=== PATIENT | female | born 1955 | race Caucasian/White ===

== ENCOUNTER 2020-10-26 18:04 | Inpatient (IN) ==
[2020-10-26] MEDS ORDERED: Lidocaine/EPI 1:100k 1% 30 ML VIAL INFILT ONE (18:47)
[2020-10-26 19:29] LABS: Basophils % 0.4 %; Eosinophils # 0.3 K/mcL (0.0-0.6); Eosinophils % 2.8 %; Hematocrit 37.9 % (35.3-44.9); Hemoglobin 11.9 g/dL (11.5-15.4); Immature Granulocytes % 0.4 % (0-4); Lymphocytes # 2.1 K/mcL (0.6-4.6); Lymphocytes % 22.8 %; Mean Corpuscular HGB Conc 31.4 g/dL (31.6-35.5); Mean Corpuscular Hemoglobin 29.5 pg (28.0-33.3); Mean Platelet Volume 11.4 fL (9.4-12.4); Monocytes # 0.8 K/mcL (0.0-1.3); Monocytes % 8.2 %; Neutrophils # 6.1 K/mcL (1.6-8.9); Platelet Count 207 K/mcL (140-400); Red Blood Count 4.03 M/mcL (3.82-4.97); Red Cell Distribution Width 12.8 % (11.5-14.5); Segmented Neutrophils % 65.4 %; White Blood Count 9.3 K/mcL (4.3-11.1)
[2020-10-26 19:41] LABS: Bilirubin,Urine Negative (Negative); Blood,Urine Negative (Negative); Clarity,Urine Clear (Clear); Color,Urine Light-Yellow (Yellow); Glucose,Urine (UA) Normal (Normal); Ketones,Urine Negative (Negative); Leukocyte Esterase,Urine Negative (Negative); Nitrite,Urine Negative (Negative); Protein,Urine Negative (Neg-Trace); Specific Gravity,Urine 1.013 (1.010-1.025); Urobilinogen,Urine Normal (Normal)
[2020-10-26 21:09] LABS: Alanine Aminotransferase 14 Units/L (7-52); Albumin 3.3 g/dL (3.5-5.7); Albumin/Globulin Ratio 1.1 (1.1-2.2); Alkaline Phosphatase 90 Units/L (34-104); Aspartate Amino Transferase 17 Units/L (13-39); BUN/Creatinine Ratio 23 (6-26); Bilirubin,Total 0.3 mg/dL (0.3-1.0); Blood Urea Nitrogen 16 mg/dL (8-23); C-Reactive Protein 9 mg/L (Less than 10); Calcium 8.9 mg/dL (8.6-10.3); Carbon Dioxide 25 mEq/L (23-29); Chloride 105 mEq/L (98-107); Globulin 3.1 g/dL (2.4-3.5); Glucose 92 mg/dL (70-105); Osmolality,Calculated 287 (280-300); Potassium 3.8 mEq/L (3.5-5.1); Sodium 138 mEq/L (136-145); Total Protein 6.4 g/dL (6.4-8.9); Uric Acid 5.8 mg/dL (2.3-7.6); eGFR For African Americans > 60 (> 60); eGFR For Non-African Americans > 60 (> 60)
[2020-10-26] MEDS ORDERED: Isovue-370 500 ML BOTTLE IVP ONE (21:12)
[2020-10-26] MEDS ORDERED: cefTRIAXone 1,000 MG in Water for inj. (sterile) 10 ML IVP ONE (22:35)
[2020-10-26 22:47] LABS: Source,Synovial Fluid ELBOW LEFT
[2020-10-26] MEDS ORDERED: Vancomycin 1,750 MG in 0.9 % Sodium Chloride 250 ML IVPB SCH (23:45)
[2020-10-26] MEDS ORDERED: Ondansetron ODT 4 MG TAB.RAPDIS SL PRN (23:48)
[2020-10-26] MEDS ORDERED: Naloxone 0.4 MG/ML INJ IVP PRN (23:48)
[2020-10-26 23:54] LABS: Appearance,Synovial Fluid Cloudy (Clear-Hazy); Color,Synovial Fluid Straw (Straw)
[2020-10-27] MEDS: 0.9 % Sodium Chloride 1,000 ML IVC SCH ×2 (02:05→14:18)
[2020-10-27] MEDS: Clindamycin 600 MG/50 ML 600 MG/50 ML IV.SOLN IVPB SCH ×4 (02:05→23:18)
[2020-10-27] MEDS: Melatonin 3 MG TABLET PO PRN ×2 (04:40→23:19)
[2020-10-27 05:37] LABS: INR 1.2; Prothrombin Time 13.4 Seconds (9.4-12.1)
[2020-10-27 05:39] LABS: Basophils % 0.6 %; Eosinophils # 0.2 K/mcL (0.0-0.6); Eosinophils % 2.7 %; Hematocrit 40.4 % (35.3-44.9); Hemoglobin 12.8 g/dL (11.5-15.4); Immature Granulocytes % 0.3 % (0-4); Lymphocytes # 2.2 K/mcL (0.6-4.6); Mean Corpuscular HGB Conc 31.7 g/dL (31.6-35.5); Mean Corpuscular Hemoglobin 29.7 pg (28.0-33.3); Mean Corpuscular Volume 93.7 fL (83.0-100.0); Mean Platelet Volume 11.3 fL (9.4-12.4); Monocytes # 0.5 K/mcL (0.0-1.3); Neutrophils # 3.8 K/mcL (1.6-8.9); Platelet Count 204 K/mcL (140-400); Red Blood Count 4.31 M/mcL (3.82-4.97); Red Cell Distribution Width 12.8 % (11.5-14.5); Segmented Neutrophils % 56.4 %; White Blood Count 6.8 K/mcL (4.3-11.1)
[2020-10-27] MEDS: *HR* HYDROcodone/Acet 5/325 mg TABLET PO PRN (05:50)
[2020-10-27 06:03] LABS: BUN/Creatinine Ratio 19 (6-26); Blood Urea Nitrogen 15 mg/dL (8-23); Calcium 9.1 mg/dL (8.6-10.3); Carbon Dioxide 25 mEq/L (23-29); Chloride 106 mEq/L (98-107); Glucose 103 mg/dL (70-105); Magnesium 1.8 mg/dL (1.6-2.6); Osmolality,Calculated 291 (280-300); Potassium 3.6 mEq/L (3.5-5.1); Sodium 140 mEq/L (136-145); eGFR For African Americans > 60 (> 60); eGFR For Non-African Americans > 60 (> 60)
[2020-10-27] MEDS: amLODIPine 5 MG TABLET PO SCH (08:07)
[2020-10-27] MEDS: PARoxetine 30 MG TABLET PO SCH (08:07)
[2020-10-27] MEDS: Aspirin Enteric Coated 81 MG Tablet PO SCH (08:07)
[2020-10-27] MEDS: Metoprolol XL (24 HR) Succ 50 MG TAB.ER.24H PO SCH (08:07)
[2020-10-27] MEDS ORDERED: Vancomycin 1,250 MG/262.5 ML IV.SOLN IVPB SCH (12:00)
[2020-10-27] MEDS: Tiotropium 10 INH DOSE IH SCH (15:13)
[2020-10-27] MEDS: Gabapentin 400 MG CAPSULE PO SCH ×2 (16:34→21:26)
[2020-10-28 02:54] LABS: Hematocrit 38.2 % (35.3-44.9); Hemoglobin 11.8 g/dL (11.5-15.4); Mean Corpuscular HGB Conc 30.9 g/dL (31.6-35.5); Mean Corpuscular Hemoglobin 29.8 pg (28.0-33.3); Mean Corpuscular Volume 96.5 fL (83.0-100.0); Mean Platelet Volume 11.4 fL (9.4-12.4); Platelet Count 190 K/mcL (140-400); Red Blood Count 3.96 M/mcL (3.82-4.97); White Blood Count 6.4 K/mcL (4.3-11.1)
[2020-10-28 03:13] LABS: BUN/Creatinine Ratio 20 (6-26); Blood Urea Nitrogen 15 mg/dL (8-23); Calcium 8.6 mg/dL (8.6-10.3); Carbon Dioxide 25 mEq/L (23-29); Chloride 109 mEq/L (98-107); Glucose 100 mg/dL (70-105); Osmolality,Calculated 291 (280-300); Potassium 3.8 mEq/L (3.5-5.1); Sodium 140 mEq/L (136-145); eGFR For African Americans > 60 (> 60); eGFR For Non-African Americans > 60 (> 60)
[2020-10-28] MEDS ORDERED: Povidone-Iodine 45 ML, Sodium Chloride IRRigation 1,000 ML IR ONE ×2 (06:00→08:00)
[2020-10-28] MEDS ORDERED: TOTAL JOINT MIXTURE (100ML) INTRAART ONE ×2 (06:00→08:00)
[2020-10-28] MEDS ORDERED: Ondansetron 4 MG/2 ML VIAL IVP PRN (07:01)
[2020-10-28] MEDS ORDERED: *HR* Meperidine 25 MG/ML SYRINGE IVP PRN (07:01)
[2020-10-28] MEDS ORDERED: Albuterol 2.5 MG/3 ML NEBULIZER IH PRN (07:01)
[2020-10-28] MEDS ORDERED: *HR* Midazolam HCl 2 MG/2 ML VIAL IVP PRN (07:01)
[2020-10-28] MEDS ORDERED: *HR* FentaNYL (PF) 100 MCG/2 ML VIAL ONE (07:04)
[2020-10-28] MEDS ORDERED: *HR* Midazolam HCl 2 MG/2 ML VIAL ONE (07:04)
[2020-10-28] MEDS ORDERED: *HR* Propofol 200 MG/20 ML VIAL IVP ONE (07:04)
[2020-10-28] MEDS ORDERED: Lidocaine -MPF 2% 2 ML VIAL ONE (07:05)
[2020-10-28] MEDS ORDERED: Ondansetron 4 MG/2 ML VIAL ONE (07:05)
[2020-10-28] MEDS: Metoprolol XL (24 HR) Succ 50 MG TAB.ER.24H PO SCH (07:15)
[2020-10-28] MEDS ORDERED: Lidocaine HCL 4 ML Topical Solution (Laryng-O-Jet Kit Sterile Pak) TP ONE (07:47)
[2020-10-28] MEDS ORDERED: *HR* Succinylcholine 200 MG/10 ML VIAL IVP ONE (07:47)
[2020-10-28] MEDS ORDERED: Clindamycin 600 MG/50 ML 600 MG/50 ML IV.SOLN IVPB ONE (07:57)
[2020-10-28] MEDS: Clindamycin 600 MG/50 ML 600 MG/50 ML IV.SOLN IVPB SCH ×3 (08:30→23:32)
[2020-10-28] MEDS: *HR* FentaNYL (PF) 100 MCG/2 ML VIAL IVP PRN ×2 (09:57→10:02)
[2020-10-28] MEDS: Tiotropium 10 INH DOSE IH SCH (11:12)
[2020-10-28] MEDS: PARoxetine 30 MG TABLET PO SCH (11:19)
[2020-10-28] MEDS: Gabapentin 400 MG CAPSULE PO SCH ×3 (11:19→20:59)
[2020-10-28] MEDS: Aspirin Enteric Coated 81 MG Tablet PO SCH (11:19)
[2020-10-28] MEDS: amLODIPine 5 MG TABLET PO SCH (11:19)
[2020-10-28] MEDS: *HR* HYDROcodone/Acet 5/325 mg TABLET PO PRN ×2 (11:19→18:09)
[2020-10-28] MEDS ORDERED: Vancomycin 1,500 MG/265 ML IV.SOLN IVPB SCH (12:00)
[2020-10-28] MEDS: *HR* Heparin 5,000 UNIT/ML VIAL SQ SCH (18:09)
[2020-10-29] MEDS: Melatonin 3 MG TABLET PO PRN (00:30)
[2020-10-29] MEDS: *HR* Heparin 5,000 UNIT/ML VIAL SQ SCH (05:11)
[2020-10-29 07:55] VITALS: BP 111/72
[2020-10-29] MEDS: Tiotropium 10 INH DOSE IH SCH (08:01)
[2020-10-29] MEDS: *HR* HYDROcodone/Acet 5/325 mg TABLET PO PRN (09:24)
[2020-10-29] MEDS: amLODIPine 5 MG TABLET PO SCH (09:24)
[2020-10-29] MEDS: Metoprolol XL (24 HR) Succ 50 MG TAB.ER.24H PO SCH (09:24)
[2020-10-29] MEDS: Clindamycin 600 MG/50 ML 600 MG/50 ML IV.SOLN IVPB SCH (09:24)
[2020-10-29] MEDS: Aspirin Enteric Coated 81 MG Tablet PO SCH (09:24)
[2020-10-29] MEDS: PARoxetine 30 MG TABLET PO SCH (09:25)
[2020-10-29] MEDS: Gabapentin 400 MG CAPSULE PO SCH (09:25)
[2020-10-29 11:47] LABS: Basophils % 0.5 %; Eosinophils # 0.1 K/mcL (0.0-0.6); Eosinophils % 1.5 %; Hematocrit 37.9 % (35.3-44.9); Hemoglobin 11.6 g/dL (11.5-15.4); Immature Granulocytes % 0.2 % (0-4); Lymphocytes # 2.5 K/mcL (0.6-4.6); Lymphocytes % 28.2 %; Mean Corpuscular HGB Conc 30.6 g/dL (31.6-35.5); Mean Corpuscular Hemoglobin 29.3 pg (28.0-33.3); Mean Corpuscular Volume 95.7 fL (83.0-100.0); Mean Platelet Volume 11.1 fL (9.4-12.4); Monocytes # 0.7 K/mcL (0.0-1.3); Monocytes % 7.5 %; Neutrophils # 5.5 K/mcL (1.6-8.9); Platelet Count 190 K/mcL (140-400); Red Blood Count 3.96 M/mcL (3.82-4.97); Segmented Neutrophils % 62.1 %; White Blood Count 8.8 K/mcL (4.3-11.1)
[2020-10-29 12:08] LABS: BUN/Creatinine Ratio 19 (6-26); Blood Urea Nitrogen 19 mg/dL (8-23); Calcium 8.9 mg/dL (8.6-10.3); Carbon Dioxide 27 mEq/L (23-29); Chloride 107 mEq/L (98-107); Glucose 109 mg/dL (70-105); Osmolality,Calculated 291 (280-300); Sodium 139 mEq/L (136-145); Vancomycin,Trough 8 mcg/mL (5-10); eGFR For African Americans > 60 (> 60); eGFR For Non-African Americans 56 (> 60)
== END 2020-10-29 17:24 | disposition home or self-care (01) | DRG 501 ==
LOC: 3ANU 18:04 → EMEROOARM 18:04 → 3ANU 23:21
PROVIDERS: ADMIT Student in an Organized Health Care Education/Training Program; ATTEND Student in an Organized Health Care Education/Training Program

== ENCOUNTER 2021-04-26 09:02 | Inpatient (IN) ==
[2021-04-26] MEDS ORDERED: Naloxone 0.4 MG/ML INJ IVP PRN (10:32)
[2021-04-26] MEDS ORDERED: *HR* OxyCODONE Immed Rel 5 MG TABLET PO PRN (10:36)
[2021-04-26] MEDS ORDERED: *HR* Metoprolol 5 MG/5 ML VIAL IVP PRN (10:36)
[2021-04-26 11:30] LABS: Basophils # 0.1 K/mcL (0.0-0.2); Basophils % 0.7 %; Eosinophils # 0.4 K/mcL (0.0-0.6); Hematocrit 39.1 % (35.3-44.9); Hemoglobin 12.3 g/dL (11.5-15.4); Immature Granulocytes % 0.8 % (0-4); Lymphocytes % 27.4 %; Mean Corpuscular HGB Conc 31.5 g/dL (31.6-35.5); Mean Corpuscular Hemoglobin 28.9 pg (28.0-33.3); Mean Corpuscular Volume 91.8 fL (83.0-100.0); Mean Platelet Volume 10.5 fL (9.4-12.4); Monocytes # 0.6 K/mcL (0.0-1.3); Monocytes % 8.5 %; Neutrophils # 4.2 K/mcL (1.6-8.9); Platelet Count 221 K/mcL (140-400); Red Blood Count 4.26 M/mcL (3.82-4.97); Red Cell Distribution Width 13.3 % (11.5-14.5); Segmented Neutrophils % 57.6 %; White Blood Count 7.4 K/mcL (4.3-11.1)
[2021-04-26 11:48] LABS: BUN/Creatinine Ratio 18 (6-26); Blood Urea Nitrogen 17 mg/dL (8-23); C-Reactive Protein 25 mg/L (Less than 10); Calcium 9.1 mg/dL (8.6-10.3); Carbon Dioxide 29 mEq/L (23-29); Chloride 103 mEq/L (98-107); Glucose 136 mg/dL (70-105); Osmolality,Calculated 294 (280-300); Potassium 3.6 mEq/L (3.5-5.1); Sodium 140 mEq/L (136-145); eGFR For African Americans > 60 (> 60); eGFR For Non-African Americans > 60 (> 60)
[2021-04-26 13:13] LABS: Procalcitonin 0.03 ng/mL (0.00-0.15)
[2021-04-26] MEDS ORDERED: Loratadine 10 MG TABLET PO PRN (16:48)
[2021-04-26] MEDS ORDERED: Melatonin 3 MG TABLET PO SCH (21:00)
[2021-04-27 04:53] LABS: Basophils # 0.1 K/mcL (0.0-0.2); Basophils % 0.7 %; Eosinophils # 0.3 K/mcL (0.0-0.6); Eosinophils % 4.4 %; Hematocrit 39.9 % (35.3-44.9); Immature Granulocytes % 0.8 % (0-4); Lymphocytes # 1.9 K/mcL (0.6-4.6); Lymphocytes % 24.9 %; Mean Corpuscular HGB Conc 32.6 g/dL (31.6-35.5); Mean Corpuscular Hemoglobin 29.4 pg (28.0-33.3); Mean Corpuscular Volume 90.3 fL (83.0-100.0); Mean Platelet Volume 10.3 fL (9.4-12.4); Monocytes # 0.7 K/mcL (0.0-1.3); Monocytes % 9.4 %; Neutrophils # 4.5 K/mcL (1.6-8.9); Platelet Count 209 K/mcL (140-400); Red Blood Count 4.42 M/mcL (3.82-4.97); Red Cell Distribution Width 13.3 % (11.5-14.5); Segmented Neutrophils % 59.8 %; White Blood Count 7.5 K/mcL (4.3-11.1)
[2021-04-27 05:12] LABS: BUN/Creatinine Ratio 22 (6-26); Blood Urea Nitrogen 17 mg/dL (8-23); Calcium 8.8 mg/dL (8.6-10.3); Carbon Dioxide 26 mEq/L (23-29); Chloride 108 mEq/L (98-107); Glucose 94 mg/dL (70-105); Osmolality,Calculated 295 (280-300); Potassium 3.8 mEq/L (3.5-5.1); Sodium 142 mEq/L (136-145); eGFR For African Americans > 60 (> 60); eGFR For Non-African Americans > 60 (> 60)
[2021-04-27] MEDS ORDERED: *HR* Heparin 5,000 UNIT/ML VIAL SQ SCH (06:00)
[2021-04-27] MEDS ORDERED: LORATADINE 10 MG PO PRN (13:06)
[2021-04-27 13:16] LABS: C-Reactive Protein 17 mg/L (Less than 10)
[2021-04-27] MEDS ORDERED: Lidocaine/EPI 1:200k 1% PF 10 ML VIAL ONE (14:25)
[2021-04-27] MEDS ORDERED: *HR* FentaNYL (PF) 100 MCG/2 ML VIAL ONE ×3 (14:33→16:13)
[2021-04-27] MEDS ORDERED: *HR* Propofol 200 MG/20 ML VIAL IVP ONE (14:33)
[2021-04-27] MEDS ORDERED: Ondansetron 4 MG/2 ML VIAL IVP PRN (14:36)
[2021-04-27] MEDS ORDERED: *HR* Succinylcholine 200 MG/10 ML VIAL IVP ONE (14:56)
[2021-04-27] MEDS ORDERED: Lidocaine HCL 4 ML Topical Solution (Laryng-O-Jet Kit Sterile Pak) TP ONE (14:56)
[2021-04-27] MEDS ORDERED: *HR* Rocuronium Bromide 50 MG/5 ML VIAL ONE (14:56)
[2021-04-27] MEDS ORDERED: Lidocaine -MPF 2% 2 ML VIAL ONE (14:56)
[2021-04-27] MEDS ORDERED: Gabapentin 400 MG CAPSULE PO SCH (15:00)
[2021-04-27] MEDS ORDERED: Vancomycin (wt based) 1,000 MG VIAL IVPB PRN (16:20)
[2021-04-27] MEDS ORDERED: Vancomycin 1,750 MG/517.5 ML IV.SOLN IVPB ONE (16:36)
[2021-04-27] MEDS: Morphine Sulfate 2 MG/ML SYRINGE IVP PRN ×3 (16:37→16:48)
[2021-04-27] MEDS ORDERED: Ringers Solution, Lactated 1,000 ML ONE (16:55)
[2021-04-27] MEDS: Piperacillin/Tazobactam 3.375 GM in 0.9 % Sodium Chloride Mini Bag 100 ML IVPB SCH ×2 (17:54→23:01)
[2021-04-27] MEDS ORDERED: *HR* Metoprolol 5 MG/5 ML VIAL IVP PRN (18:18)
[2021-04-27] MEDS ORDERED: Loratadine 10 MG TABLET PO PRN (18:18)
[2021-04-27] MEDS ORDERED: Naloxone 0.4 MG/ML INJ IVP PRN (18:18)
[2021-04-27] MEDS: *HR* OxyCODONE Immed Rel 5 MG TABLET PO PRN (19:38)
[2021-04-27] MEDS: Melatonin 3 MG TABLET PO SCH (20:44)
[2021-04-27] MEDS: Gabapentin 400 MG CAPSULE PO SCH (20:44)
[2021-04-27] MEDS: Aspirin Enteric Coated 81 MG Tablet PO SCH (20:44)
[2021-04-27] MEDS: modafiniL 100 MG TABLET PO SCH (20:46)
[2021-04-27] MEDS ORDERED: Aspirin Enteric Coated 81 MG Tablet PO SCH (21:00)
[2021-04-27] MEDS ORDERED: modafiniL 100 MG TABLET PO SCH (21:00)
[2021-04-28] MEDS: *HR* OxyCODONE Immed Rel 5 MG TABLET PO PRN ×2 (03:21→13:47)
[2021-04-28] MEDS: Vancomycin 1,250 MG/262.5 ML IV.SOLN IVPB SCH ×2 (06:22→17:45)
[2021-04-28] MEDS: Cholecalciferol (D-3) 1,000 UNIT (25MCG) TABLET PO SCH (07:54)
[2021-04-28] MEDS: hydroCHLOROthiazide 25 MG TABLET PO SCH (07:54)
[2021-04-28] MEDS: PARoxetine 30 MG TABLET PO SCH (07:55)
[2021-04-28] MEDS: Metoprolol XL (24 HR) Succ 50 MG TAB.ER.24H PO SCH (07:55)
[2021-04-28] MEDS: Cyanocobalamin (B-12) 1,000 MCG TABLET PO SCH (07:55)
[2021-04-28] MEDS: modafiniL 100 MG TABLET PO SCH ×2 (07:55→21:51)
[2021-04-28] MEDS: Piperacillin/Tazobactam 3.375 GM in 0.9 % Sodium Chloride Mini Bag 100 ML IVPB SCH (07:56)
[2021-04-28] MEDS: Gabapentin 400 MG CAPSULE PO SCH ×3 (07:56→21:49)
[2021-04-28] MEDS: amLODIPine 5 MG TABLET PO SCH (08:00)
[2021-04-28] MEDS: Budesonide/Formoterol 160/4.5 1 PUFF INH IH SCH ×2 (08:01→21:01)
[2021-04-28] MEDS: Tiotropium 10 INH DOSE IH SCH (08:06)
[2021-04-28] MEDS ORDERED: amLODIPine 5 MG TABLET PO SCH (09:00)
[2021-04-28] MEDS ORDERED: Metoprolol XL (24 HR) Succ 50 MG TAB.ER.24H PO SCH (09:00)
[2021-04-28] MEDS ORDERED: hydroCHLOROthiazide 25 MG TABLET PO SCH (09:00)
[2021-04-28] MEDS ORDERED: PARoxetine 30 MG TABLET PO SCH (09:00)
[2021-04-28] MEDS ORDERED: Cholecalciferol (D-3) 1,000 UNIT (25MCG) TABLET PO SCH (09:00)
[2021-04-28] MEDS ORDERED: Cyanocobalamin (B-12) 1,000 MCG TABLET PO SCH (09:00)
[2021-04-28 09:46] LABS: Hematocrit 36.9 % (35.3-44.9); Mean Corpuscular HGB Conc 30.1 g/dL (31.6-35.5); Mean Corpuscular Hemoglobin 28.2 pg (28.0-33.3); Mean Corpuscular Volume 93.9 fL (83.0-100.0); Mean Platelet Volume 10.7 fL (9.4-12.4); Platelet Count 207 K/mcL (140-400); Red Blood Count 3.93 M/mcL (3.82-4.97); Red Cell Distribution Width 13.3 % (11.5-14.5); White Blood Count 9.2 K/mcL (4.3-11.1)
[2021-04-28 09:47] LABS: Hemoglobin 11.1 g/dL (11.5-15.4)
[2021-04-28] MEDS ORDERED: Budesonide/Formoterol 160/4.5 1 PUFF INH IH SCH (10:00)
[2021-04-28] MEDS ORDERED: Tiotropium 10 INH DOSE IH SCH (10:00)
[2021-04-28 10:08] LABS: BUN/Creatinine Ratio 15 (6-26); Blood Urea Nitrogen 12 mg/dL (8-23); Calcium 8.3 mg/dL (8.6-10.3); Carbon Dioxide 30 mEq/L (23-29); Chloride 107 mEq/L (98-107); Glucose 116 mg/dL (70-105); Osmolality,Calculated 295 (280-300); Sodium 142 mEq/L (136-145); eGFR For African Americans > 60 (> 60); eGFR For Non-African Americans > 60 (> 60)
[2021-04-28] MEDS: Cefepime HCl 2,000 MG in Water for inj. (sterile) 20 ML IVP SCH (15:11)
[2021-04-28] MEDS: *HR* Heparin 5,000 UNIT/ML VIAL SQ SCH (17:45)
[2021-04-28] MEDS ORDERED: lisinopriL 20 MG TABLET PO SCH ×2 (21:00)
[2021-04-28] MEDS: Melatonin 3 MG TABLET PO SCH (21:49)
[2021-04-28] MEDS: Aspirin Enteric Coated 81 MG Tablet PO SCH (21:50)
[2021-04-28] MEDS: cilostazoL 100 MG TABLET PO SCH (21:51)
[2021-04-28] MEDS: Famotidine 20 MG TABLET PO SCH (22:14)
[2021-04-29] MEDS: *HR* OxyCODONE Immed Rel 5 MG TABLET PO PRN ×3 (01:03→20:43)
[2021-04-29] MEDS: Vancomycin 1,250 MG/262.5 ML IV.SOLN IVPB SCH ×2 (05:21→06:26)
[2021-04-29] MEDS: Cefepime HCl 2,000 MG in Water for inj. (sterile) 20 ML IVP SCH ×2 (05:21→17:29)
[2021-04-29] MEDS: *HR* Heparin 5,000 UNIT/ML VIAL SQ SCH ×2 (05:22→17:26)
[2021-04-29 05:58] LABS: Hematocrit 38.7 % (35.3-44.9); Hemoglobin 12.3 g/dL (11.5-15.4); Mean Corpuscular HGB Conc 31.8 g/dL (31.6-35.5); Mean Corpuscular Hemoglobin 29.4 pg (28.0-33.3); Mean Corpuscular Volume 92.4 fL (83.0-100.0); Platelet Count 191 K/mcL (140-400); Red Blood Count 4.19 M/mcL (3.82-4.97); Red Cell Distribution Width 13.5 % (11.5-14.5); White Blood Count 9.6 K/mcL (4.3-11.1)
[2021-04-29 06:15] LABS: BUN/Creatinine Ratio 23 (6-26); Blood Urea Nitrogen 18 mg/dL (8-23); Calcium 8.8 mg/dL (8.6-10.3); Carbon Dioxide 27 mEq/L (23-29); Chloride 107 mEq/L (98-107); Glucose 105 mg/dL (70-105); Osmolality,Calculated 292 (280-300); Potassium 3.5 mEq/L (3.5-5.1); Sodium 140 mEq/L (136-145); eGFR For African Americans > 60 (> 60); eGFR For Non-African Americans > 60 (> 60)
[2021-04-29] MEDS: Cholecalciferol (D-3) 1,000 UNIT (25MCG) TABLET PO SCH (07:17)
[2021-04-29] MEDS: hydroCHLOROthiazide 25 MG TABLET PO SCH (07:17)
[2021-04-29] MEDS: cilostazoL 100 MG TABLET PO SCH ×2 (07:17→20:39)
[2021-04-29] MEDS: amLODIPine 5 MG TABLET PO SCH (07:18)
[2021-04-29] MEDS: PARoxetine 30 MG TABLET PO SCH (07:18)
[2021-04-29] MEDS: Famotidine 20 MG TABLET PO SCH ×2 (07:18→20:39)
[2021-04-29] MEDS: modafiniL 100 MG TABLET PO SCH ×2 (07:18→20:41)
[2021-04-29] MEDS: Gabapentin 400 MG CAPSULE PO SCH ×3 (07:18→20:39)
[2021-04-29] MEDS: Cyanocobalamin (B-12) 1,000 MCG TABLET PO SCH (07:18)
[2021-04-29] MEDS: Metoprolol XL (24 HR) Succ 50 MG TAB.ER.24H PO SCH (07:18)
[2021-04-29] MEDS: Tiotropium 10 INH DOSE IH SCH (10:25)
[2021-04-29] MEDS: Budesonide/Formoterol 160/4.5 1 PUFF INH IH SCH ×2 (10:25→21:58)
[2021-04-29] MEDS: Melatonin 3 MG TABLET PO SCH (20:39)
[2021-04-29] MEDS: lisinopriL 20 MG TABLET PO SCH (20:39)
[2021-04-29] MEDS: Aspirin Enteric Coated 81 MG Tablet PO SCH (20:39)
[2021-04-30 03:23] LABS: Hematocrit 37.9 % (35.3-44.9); Hemoglobin 11.7 g/dL (11.5-15.4); Mean Corpuscular HGB Conc 30.9 g/dL (31.6-35.5); Mean Corpuscular Hemoglobin 28.7 pg (28.0-33.3); Mean Corpuscular Volume 92.9 fL (83.0-100.0); Mean Platelet Volume 10.5 fL (9.4-12.4); Platelet Count 209 K/mcL (140-400); Red Blood Count 4.08 M/mcL (3.82-4.97); Red Cell Distribution Width 13.4 % (11.5-14.5); White Blood Count 10.6 K/mcL (4.3-11.1)
[2021-04-30 05:05] LABS: BUN/Creatinine Ratio 18 (6-26); Blood Urea Nitrogen 17 mg/dL (8-23); Calcium 8.8 mg/dL (8.6-10.3); Carbon Dioxide 32 mEq/L (23-29); Chloride 102 mEq/L (98-107); Glucose 108 mg/dL (70-105); Osmolality,Calculated 292 (280-300); Potassium 3.7 mEq/L (3.5-5.1); Sodium 140 mEq/L (136-145); eGFR For African Americans > 60 (> 60); eGFR For Non-African Americans 57 (> 60)
[2021-04-30] MEDS: *HR* Heparin 5,000 UNIT/ML VIAL SQ SCH ×2 (05:08→17:49)
[2021-04-30] MEDS: Cefepime HCl 2,000 MG in Water for inj. (sterile) 20 ML IVP SCH (05:09)
[2021-04-30] MEDS: *HR* OxyCODONE Immed Rel 5 MG TABLET PO PRN (06:10)
[2021-04-30] MEDS: Tiotropium 10 INH DOSE IH SCH (07:22)
[2021-04-30] MEDS: Budesonide/Formoterol 160/4.5 1 PUFF INH IH SCH ×2 (07:22→21:48)
[2021-04-30] MEDS: amLODIPine 5 MG TABLET PO SCH (09:31)
[2021-04-30] MEDS: Cholecalciferol (D-3) 1,000 UNIT (25MCG) TABLET PO SCH (09:31)
[2021-04-30] MEDS: modafiniL 100 MG TABLET PO SCH ×2 (09:31→19:57)
[2021-04-30] MEDS: Famotidine 20 MG TABLET PO SCH ×2 (09:31→19:52)
[2021-04-30] MEDS: PARoxetine 30 MG TABLET PO SCH (09:31)
[2021-04-30] MEDS: cilostazoL 100 MG TABLET PO SCH ×2 (09:31→19:52)
[2021-04-30] MEDS: Cyanocobalamin (B-12) 1,000 MCG TABLET PO SCH (09:31)
[2021-04-30] MEDS: hydroCHLOROthiazide 25 MG TABLET PO SCH (09:32)
[2021-04-30] MEDS: Gabapentin 400 MG CAPSULE PO SCH ×3 (09:32→19:52)
[2021-04-30] MEDS: Metoprolol XL (24 HR) Succ 50 MG TAB.ER.24H PO SCH (09:32)
[2021-04-30] MEDS: cefTRIAXone 2,000 MG in 0.9 % Sodium Chloride Mini Bag 100 ML IVPB SCH (11:24)
[2021-04-30 11:25] LABS: C-Reactive Protein 13 mg/L (Less than 10)
[2021-04-30] MEDS: Aspirin Enteric Coated 81 MG Tablet PO SCH (19:52)
[2021-04-30] MEDS: Melatonin 3 MG TABLET PO SCH (19:53)
[2021-04-30] MEDS: lisinopriL 20 MG TABLET PO SCH (19:54)
[2021-05-01 04:44] LABS: Hematocrit 36.7 % (35.3-44.9); Hemoglobin 12.2 g/dL (11.5-15.4); Mean Corpuscular HGB Conc 33.2 g/dL (31.6-35.5); Mean Corpuscular Hemoglobin 30.1 pg (28.0-33.3); Mean Corpuscular Volume 90.6 fL (83.0-100.0); Mean Platelet Volume 10.7 fL (9.4-12.4); Platelet Count 207 K/mcL (140-400); Red Blood Count 4.05 M/mcL (3.82-4.97); Red Cell Distribution Width 13.4 % (11.5-14.5); White Blood Count 11.4 K/mcL (4.3-11.1)
[2021-05-01 05:00] LABS: BUN/Creatinine Ratio 18 (6-26); Blood Urea Nitrogen 17 mg/dL (8-23); Calcium 9.3 mg/dL (8.6-10.3); Carbon Dioxide 31 mEq/L (23-29); Chloride 101 mEq/L (98-107); Glucose 113 mg/dL (70-105); Osmolality,Calculated 290 (280-300); Potassium 3.6 mEq/L (3.5-5.1); Sodium 139 mEq/L (136-145); eGFR For African Americans > 60 (> 60); eGFR For Non-African Americans 57 (> 60)
[2021-05-01] MEDS: *HR* Heparin 5,000 UNIT/ML VIAL SQ SCH ×2 (05:22→17:38)
[2021-05-01] MEDS: Tiotropium 10 INH DOSE IH SCH (08:02)
[2021-05-01] MEDS: Budesonide/Formoterol 160/4.5 1 PUFF INH IH SCH ×2 (08:02→22:50)
[2021-05-01] MEDS: hydroCHLOROthiazide 25 MG TABLET PO SCH (09:40)
[2021-05-01] MEDS: Gabapentin 400 MG CAPSULE PO SCH ×3 (09:40→20:47)
[2021-05-01] MEDS: amLODIPine 5 MG TABLET PO SCH (09:41)
[2021-05-01] MEDS: Cholecalciferol (D-3) 1,000 UNIT (25MCG) TABLET PO SCH (09:41)
[2021-05-01] MEDS: Metoprolol XL (24 HR) Succ 50 MG TAB.ER.24H PO SCH (09:41)
[2021-05-01] MEDS: cilostazoL 100 MG TABLET PO SCH ×2 (09:41→20:47)
[2021-05-01] MEDS: modafiniL 100 MG TABLET PO SCH ×2 (09:41→20:46)
[2021-05-01] MEDS: PARoxetine 30 MG TABLET PO SCH (09:41)
[2021-05-01] MEDS: Famotidine 20 MG TABLET PO SCH ×2 (09:41→20:47)
[2021-05-01] MEDS: Cyanocobalamin (B-12) 1,000 MCG TABLET PO SCH (09:41)
[2021-05-01] MEDS: cefTRIAXone 2,000 MG in 0.9 % Sodium Chloride Mini Bag 100 ML IVPB SCH (09:42)
[2021-05-01] MEDS: *HR* OxyCODONE Immed Rel 5 MG TABLET PO PRN ×2 (10:17→17:52)
[2021-05-01] MEDS: Aspirin Enteric Coated 81 MG Tablet PO SCH (20:44)
[2021-05-01] MEDS: lisinopriL 20 MG TABLET PO SCH (20:47)
[2021-05-01] MEDS: Melatonin 3 MG TABLET PO SCH (23:02)
[2021-05-02] MEDS: *HR* Heparin 5,000 UNIT/ML VIAL SQ SCH ×2 (05:30→17:32)
[2021-05-02] MEDS: Tiotropium 10 INH DOSE IH SCH (07:53)
[2021-05-02] MEDS: Budesonide/Formoterol 160/4.5 1 PUFF INH IH SCH ×2 (07:53→20:25)
[2021-05-02] MEDS: hydroCHLOROthiazide 25 MG TABLET PO SCH (09:37)
[2021-05-02] MEDS: Famotidine 20 MG TABLET PO SCH ×2 (09:37→19:52)
[2021-05-02] MEDS: amLODIPine 5 MG TABLET PO SCH (09:37)
[2021-05-02] MEDS: Metoprolol XL (24 HR) Succ 50 MG TAB.ER.24H PO SCH (09:37)
[2021-05-02] MEDS: Cholecalciferol (D-3) 1,000 UNIT (25MCG) TABLET PO SCH (09:37)
[2021-05-02] MEDS: Gabapentin 400 MG CAPSULE PO SCH ×3 (09:38→19:52)
[2021-05-02] MEDS: cilostazoL 100 MG TABLET PO SCH ×2 (09:38→19:52)
[2021-05-02] MEDS: PARoxetine 30 MG TABLET PO SCH (09:41)
[2021-05-02] MEDS: Cyanocobalamin (B-12) 1,000 MCG TABLET PO SCH (09:41)
[2021-05-02] MEDS: cefTRIAXone 2,000 MG in 0.9 % Sodium Chloride Mini Bag 100 ML IVPB SCH (09:41)
[2021-05-02] MEDS: modafiniL 100 MG TABLET PO SCH ×2 (09:41→19:54)
[2021-05-02] MEDS: *HR* OxyCODONE Immed Rel 5 MG TABLET PO PRN (19:52)
[2021-05-02] MEDS: Aspirin Enteric Coated 81 MG Tablet PO SCH (19:52)
[2021-05-02] MEDS: lisinopriL 20 MG TABLET PO SCH (19:53)
[2021-05-02] MEDS: Melatonin 3 MG TABLET PO SCH (23:06)
[2021-05-03] MEDS: *HR* OxyCODONE Immed Rel 5 MG TABLET PO PRN ×3 (00:30→15:07)
[2021-05-03] MEDS: *HR* Heparin 5,000 UNIT/ML VIAL SQ SCH (06:11)
[2021-05-03] MEDS: Tiotropium 10 INH DOSE IH SCH (07:45)
[2021-05-03] MEDS: Budesonide/Formoterol 160/4.5 1 PUFF INH IH SCH ×2 (07:45→20:30)
[2021-05-03] MEDS: PARoxetine 30 MG TABLET PO SCH (07:53)
[2021-05-03] MEDS: Cholecalciferol (D-3) 1,000 UNIT (25MCG) TABLET PO SCH (07:54)
[2021-05-03] MEDS: Famotidine 20 MG TABLET PO SCH (07:54)
[2021-05-03] MEDS: cilostazoL 100 MG TABLET PO SCH (07:54)
[2021-05-03] MEDS: hydroCHLOROthiazide 25 MG TABLET PO SCH (07:54)
[2021-05-03] MEDS: Metoprolol XL (24 HR) Succ 50 MG TAB.ER.24H PO SCH (07:54)
[2021-05-03] MEDS: Gabapentin 400 MG CAPSULE PO SCH ×2 (07:54→15:07)
[2021-05-03] MEDS: amLODIPine 5 MG TABLET PO SCH (07:54)
[2021-05-03] MEDS: modafiniL 100 MG TABLET PO SCH (07:54)
[2021-05-03] MEDS: Cyanocobalamin (B-12) 1,000 MCG TABLET PO SCH (07:55)
[2021-05-03] MEDS: cefTRIAXone 2,000 MG in 0.9 % Sodium Chloride Mini Bag 100 ML IVPB SCH (07:55)
[2021-05-03] MEDS ORDERED: Lactobacillus 1 EACH CAP.SPRINK PO SCH (21:00)
[2021-05-03 23:57] VITALS: BP 104/56; PULSE 65; TEMP 98.3; O2SAT 98
== END 2021-05-03 18:40 | disposition home health service (06) | DRG 464 ==
LOC: CDU → SUATTDRO 09:21 → 3NENU 14:30 → SUATTDRO 04-28 15:43
PROVIDERS: ADMIT Student in an Organized Health Care Education/Training Program; ATTEND Internal Medicine